=== PATIENT | male | born 1935 | race African-American/Black ===

== ENCOUNTER 2020-12-04 19:58 | Inpatient (IN) | payer MEDICARE, MEDICAID ==
[~2020-12-04] VITALS: Ht 188 cm; Wt 82.6 kg
[2020-12-04 21:03] LABS: BASOPHILS % 0.5 % (0.0-2.0); EOSINOPHILS % 2.3 % (0.0-5.0); HEMATOCRIT. 39.4 % (42.0-52.0); HEMOGLOBIN. 13.5 g/dL (14.0-18.0); LYMPHOCYTES % 35.9 % (20.0-50.0); MEAN CORPUSCULAR HEMOGLOBIN 29.1 pg (28.0-32.0); MEAN CORPUSCULAR VOLUME 85.1 fL (80.0-94.0); MEAN PLATELET VOLUME 10.8 fl (7.4-10.4); NEUTROPHILS % 49.3 % (40.0-76.0); PLATELET 140 x1000/uL (130-400); RED BLOOD CELL COUNT 4.63 mill/uL (4.7-6.1); RED CELL DISTRIBUTION WIDTH 15.6 % (11.6-14.6)
[2020-12-04 21:08] LABS: CHLORIDE 113 mEq/L (98-107)
[2020-12-05] VITALS (15 sets, daily range): BP systolic 147–182; BP diastolic 39–93
[2020-12-05] MEDS ORDERED: HYDRALAZINE 20MG/ML VIAL IV PRN ×2 (00:15→06:00)
[2020-12-05] MEDS: AMLODIPINE 10MG TABLET PO SCH (03:05)
[2020-12-05] MEDS: HYDRALAZINE HCL 100MG TABLET PO SCH ×3 (06:22→21:06)
[2020-12-05] MEDS ORDERED: FLUO15CR46 TP (09:25)
[2020-12-05] MEDS ORDERED: TOLT2TAB2 MT (09:25)
[2020-12-05] MEDS ORDERED: TELM80TA8 MT (09:25)
[2020-12-05] MEDS ORDERED: CRES10 MT (09:25)
[2020-12-05] MEDS ORDERED: APIX5TAB4 PO (09:25)
[2020-12-05] MEDS ORDERED: NIFE90TA60 MT (09:26)
[2020-12-05] MEDS ORDERED: HYDR-4135 MT (09:26)
[2020-12-05] MEDS ORDERED: FINA1TAB18 MT (09:28)
[2020-12-05] MEDS ORDERED: VIT1TABL62 PO (09:28)
[2020-12-05] MEDS ORDERED: COLL226C TP (09:28)
[2020-12-05] MEDS ORDERED: HYDROCODONE/ACETAMINOPHEN 5/325MG TABLET PO PRN (09:45)
[2020-12-05] MEDS ORDERED: DOCUSATE SODIUM 100MG CAPSULE PO PRN (09:45)
[2020-12-05] MEDS ORDERED: DEXTROSE 50% WATER 50ML SYRINGE IV PRN ×2 (09:45)
[2020-12-05] MEDS ORDERED: MAGNESIUM/ALUMINUM HYDROXIDE/SIMETHICONE 30ML UDC PO PRN (09:45)
[2020-12-05] MEDS ORDERED: ONDANSETRON HCL 4MG/2ML INJ IV PRN (09:45)
[2020-12-05] MEDS: OMEPRAZOLE 20MG CAPSULE EXTENDED RELEASE PO SCH (11:47)
[2020-12-05] MEDS: BLOOD SUGAR DIAGNOSTIC STRIP TEST SCH ×3 (11:54→21:00)
[2020-12-05 15:12] LABS: CLARITY URINE CLEAR (CLEAR); COLOR URINE YELLOW (YELLOW); KETONES URINE NEGATIVE (NEGATIVE); LEUKOCYTE ESTERASE URINE NEGATIVE (NEGATIVE); NITRITE URINE NEGATIVE (NEGATIVE); OCCULT BLOOD URINE NEGATIVE (NEGATIVE); PH URINE 6.5 (4.5-8.0); PROTEIN URINE NEGATIVE (NEGATIVE); SPECIFIC GRAVITY URINE 1.017 (1.005-1.030); UROBILINOGEN URINE 0.2 E.U./dL (0.2-1.0)
[2020-12-05 15:46] LABS: *AMPHETAMINES SCREEN URINE NEGATIVE (NEGATIVE); *BENZODIAZEPINES SCREEN URINE NEGATIVE (NEGATIVE)
[2020-12-05 15:49] LABS: METHADONE URINE SCREEN NEGATIVE (NEGATIVE); OPIATES URINE SCREEN NEGATIVE (NEGATIVE)
[2020-12-05 15:52] LABS: *COCAINE SCREEN URINE NEGATIVE (NEGATIVE)
[2020-12-05 15:53] LABS: *BARBITURATES SCREEN URINE NEGATIVE (NEGATIVE)
[2020-12-05 15:55] LABS: PHENCYCLIDINE URINE SCREEN NEGATIVE (NEGATIVE)
[2020-12-05 15:56] LABS: CANNABINOID URINE SCREEN NEGATIVE (NEGATIVE)
[2020-12-05] MEDS: INSULIN LISPRO 100 UNITS/ML SUBCUT SCH ×3 (16:03→21:00)
[2020-12-06] VITALS (11 sets, daily range): BP systolic 139–188; BP diastolic 57–86
[2020-12-06] MEDS: OMEPRAZOLE 20MG CAPSULE EXTENDED RELEASE PO SCH (05:29)
[2020-12-06] MEDS: HYDRALAZINE HCL 100MG TABLET PO SCH ×3 (05:29→21:31)
[2020-12-06 07:28] LABS: BASOPHILS % 0.4 % (0.0-2.0); EOSINOPHILS % 2.4 % (0.0-5.0); HEMATOCRIT. 39.9 % (42.0-52.0); HEMOGLOBIN. 13.2 g/dL (14.0-18.0); LYMPHOCYTES % 32.8 % (20.0-50.0); MEAN CORPUSCULAR HEMOGLOBIN 28.7 pg (28.0-32.0); MEAN CORPUSCULAR VOLUME 86.6 fL (80.0-94.0); MEAN PLATELET VOLUME 11.1 fl (7.4-10.4); MONOCYTES % 13.5 % (2.0-8.0); NEUTROPHILS % 50.9 % (40.0-76.0); PLATELET 138 x1000/uL (130-400); RED BLOOD CELL COUNT 4.61 mill/uL (4.7-6.1); RED CELL DISTRIBUTION WIDTH 15.4 % (11.6-14.6)
[2020-12-06 07:29] LABS: CHLORIDE 111 mEq/L (98-107)
[2020-12-06] MEDS: BLOOD SUGAR DIAGNOSTIC STRIP TEST SCH ×4 (07:30→21:00)
[2020-12-06 07:44] LABS: PHOSPHORUS 3.4 mg/dL (2.5-4.9)
[2020-12-06 07:45] LABS: LDL CHOLESTEROL 113 mg/dL (5-100)
[2020-12-06 07:47] LABS: HDL CHOLESTEROL 48 mg/dL (40-59)
[2020-12-06] MEDS: INSULIN LISPRO 100 UNITS/ML SUBCUT SCH ×4 (08:00→21:36)
[2020-12-06] MEDS: AMLODIPINE 10MG TABLET PO SCH (08:50)
[2020-12-07] VITALS (7 sets, daily range): BP systolic 125–173; BP diastolic 42–82
[2020-12-07] MEDS: HYDRALAZINE HCL 100MG TABLET PO SCH (06:16)
[2020-12-07 07:04] LABS: BASOPHILS % 0.5 % (0.0-2.0); EOSINOPHILS % 2.7 % (0.0-5.0); HEMATOCRIT. 40.3 % (42.0-52.0); HEMOGLOBIN. 13.7 g/dL (14.0-18.0); LYMPHOCYTES % 31.8 % (20.0-50.0); MEAN CORPUSCULAR HEMOGLOBIN 28.8 pg (28.0-32.0); MEAN CORPUSCULAR VOLUME 84.8 fL (80.0-94.0); MEAN PLATELET VOLUME 10.9 fl (7.4-10.4); MONOCYTES % 14.2 % (2.0-8.0); NEUTROPHILS % 50.8 % (40.0-76.0); PLATELET 141 x1000/uL (130-400); RED BLOOD CELL COUNT 4.75 mill/uL (4.7-6.1); RED CELL DISTRIBUTION WIDTH 15.4 % (11.6-14.6)
[2020-12-07 07:09] LABS: CHLORIDE 110 mEq/L (98-107)
[2020-12-07] MEDS: BLOOD SUGAR DIAGNOSTIC STRIP TEST SCH ×2 (07:30→12:56)
[2020-12-07] MEDS: OMEPRAZOLE 20MG CAPSULE EXTENDED RELEASE PO SCH (07:53)
[2020-12-07] MEDS: INSULIN LISPRO 100 UNITS/ML SUBCUT SCH ×2 (08:00→12:56)
[2020-12-07] MEDS: AMLODIPINE 10MG TABLET PO SCH (09:23)
[2020-12-07] MEDS ORDERED: NALOXONE HCL 0.4MG/ML VIAL IV PRN (19:00)
[2020-12-07] MEDS ORDERED: FAMOTIDINE 20MG TABLET PO SCH (21:00)
== END 2020-12-07 17:25 | disposition home health service (06) | DRG 305 ==
LOC: ER 19:58 → 5EST 22:34 → ENRESERV 23:10
PROVIDERS: ADMIT Internal Medicine; ATTEND Internal Medicine
DX: I16.0 Hypertensive urgency (principal); I48.4 Atypical atrial flutter; I48.0 Paroxysmal atrial fibrillation; I44.1 Atrioventricular block, second degree; I11.9 Hypertensive heart disease without heart failure; M25.571 Pain in right ankle and joints of right foot; Z20.822 Contact with and (suspected) exposure to COVID-19; E11.9 Type 2 diabetes mellitus without complications; N40.0 Benign prostatic hyperplasia without lower urinary tract symptoms; Z79.01 Long term (current) use of anticoagulants; Z88.6 Allergy status to analgesic agent; W01.0XXA Fall on same level from slipping, tripping and stumbling without subsequent striking against object, initial encounter
CPT/HCPCS: 36415; 71045; 72131; 73610; 73630; 80048; 80053; 80061; 80076; 80305; 81003; 82962; 83036; 83735; 83880; 84100; 84443; 84484; 85025; 87426; 93005; 93306; 93970; 97162; 97166; 97530; 99291; J0360; J1815